=== PATIENT | male | born 1985 | race Hispanic/Latino ===

== ENCOUNTER 2023-06-05 23:46 | Emergency (ER) | payer OTHER ==
[~2023-06-05] VITALS: Ht 167.6 cm; Wt 83.9 kg
[2023-06-06] MEDS ORDERED: IBUP-2077 PO (00:58)
[2023-06-06] MEDS ORDERED: AMOX1TAB16 PO (00:58)
[2023-06-06] MEDS: LIDOCAINE HCL 1% 20 ML VIAL INJ SCH (01:00)
[2023-06-06] MEDS ORDERED: CIPOTIC AD (01:00)
[2023-06-06] MEDS: AMOX/CLAV 875/125MG TAB PO ONE (01:12)
[2023-06-06] MEDS: TETANUS/DIPHTHERIA TOXOID [ADULT] 0.5 ML VIAL IM ONE (01:12)
[2023-06-06 01:30] VITALS: BP 158/82; PULSE 84; RESP 16; O2SAT 99
== END 2023-06-06 01:41 | disposition home or self-care (01) ==
LOC: EDH 23:46
DX: S51.812A Laceration without foreign body of left forearm, initial encounter (principal); W54.0XXA Bitten by dog, initial encounter; Y93.89 Activity, other specified; Y92.89 Other specified places as the place of occurrence of the external cause; Y99.8 Other external cause status
CPT/HCPCS: 12002; 90471; 90714